=== PATIENT | male | born 1985 | race Caucasian/White ===

== ENCOUNTER 2019-03-04 15:26 | Emergency (ER) | payer OTHER ==
[2019-03-04 15:33] VITALS: BP 127/71
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
== END 2019-03-04 16:07 | disposition home or self-care (01) ==
LOC: ED 15:26
DX: S46.819A Strain of other muscles, fascia and tendons at shoulder and upper arm level, unspecified arm, initial encounter (principal); Y35.891A Legal intervention involving other specified means, law enforcement official injured, initial encounter; Y99.0 Civilian activity done for income or pay
CPT/HCPCS: 99281